=== PATIENT | female | born 1950 | race Caucasian/White ===

== ENCOUNTER → 2017-04-07 | Day surgery (SDC) | payer OTHER ==
[~2017-04-07] MED LIST: ACETAMINOPHEN 1000 MG/100 ML VIAL IV ONE; BACITRACIN IM FOR SOLN 50,000 UNIT VIAL ONE; BUPIVACAINE/EPINEPHRINE 0.25% 50 ML VIAL ONE; GENTAMICIN SULFATE 80 MG/2 ML VIAL ONE; KETOROLAC TROMETHAMINE 30 MG/ML (IVP) VIAL IV PUSH ONE; LACTATED RINGER'S 1,000 ML BAG IV ONE; LACTATED RINGER'S 1000 ML INJ 1,000 ML ONE; LEVO.1 PO; LIDOCAINE 1%/EPINEPHrine 1:100,000 SOLN 20 ML VIAL ONE; LIDOCAINE HCL 1% PF 30 ML VIAL ONE; MEPERIDINE HCL 50 MG/ML VIAL ONE; MIDAZOLAM HCL 2 MG/2 ML VIAL ONE; MORPHINE SULFATE 4 MG/ML INJ ONE; ONDANSETRON HCL 4 MG/2 ML VIAL IV PUSH ONE; PROPOFOL 200 MG/20 ML AMP IV ONE; SODIUM CHLORIDE 0.9% 20 ML VIAL ONE; ceFAZolin INJ 1,000 MG VIAL ONE
--- NOTE | 2017-04-07 17:26 | TN ---
cc: ZE ROSS M.D. DATE OF SURGERY: 04/07/2017 PREOPERATIVE DIAGNOSIS Wishes of the exchange implants and correction of ptosis with correction of lipodystrophy. PROCEDURES: Removal and replacement of implants with a slim lipoma the torso and thighs. SURGEON Ze Ross. ANESTHESIA LMA general ESTIMATED BLOOD LOSS: Minimal. COMPLICATIONS: None. DRAINS: None. PROCEDURE She was properly consented, marked properly anesthetized the skin sterilized with Betadine solution and sterile draping applied. Local anesthetic was injected in the breast area, total of 60 cc of 1% lidocaine with epinephrine, next 0.12% Marcaine at 2:1 ratio 30 cc per breast. Through previous inframammary incision inferior vertical incision the pocket was encountered the implant was removed the pocket was irrigated, lateral capsulorrhaphies were done utilizing multiple layers of 2-0 silk suture in the lateral and inferior wall. Then the implant was applied. The implants placed were the inspire [facility]'s 330 cc. The serial number of the right breast implant device [id number] and to the left [id number]. After that was placed the wounds were closed utilizing multiple layers of 2-0 Monocryl suture and the patient was sat up the tailor tack technique was utilized in order to establish the excess of the envelope of the breast skin, utilizing surgical miki. That excess skin was marked, the miki were removed and were the de-epithelialized and the NAC was set at 42 mm areolar diameter and about 22 cm from sternal notch. The closure was done as follows, The inferior vertical horizontal incision was done utilizing 2-0 Monocryl suture and the NAC was set with a pinwheel utilizing a 2-0 PTFE suture reinforced with 2-0 quill and dressed with Dermabond. Attention was directed to the other side where the exactly the same manner. We proceeded and performed the proper procedure on the contralateral breast. Good viability of both breast was noted at the end of the case. Attention followup to the torso where a total tumescent of 2400 in was properly infiltrated out of those 1200 was fat with a difference 1200 cc. The energy utilized was 50,000 joules, of those 10,000 was anterior, right 20,000 to abdomen 20,000 Posterior abdomen and 1000 each thigh and knee. After the energy was delivered I proceeded to perform the removal with Micro A cannula and a 2.5 mm cannula as well. With this I performed the closure of this and every one of the puncture wounds utilizing 5-0 chromic suture and Steri-Strips was applied and finally I proceeded to perform the application of the girdle overall the patient tolerated the procedure well. She was awakened and extubated in the operating room transferred back to postanesthesia care unit in stable condition. No complications appreciated. The patient tolerated the procedure fairly well. MD KWESI Robertson/luis enrique /2:39 PM /3:52 PM MTDDelfin
== END | disposition home or self-care (01) ==
LOC: ESDC 08:50
PROVIDERS: ATTEND Plastic Surgery
DX: Z41.1 Encounter for cosmetic surgery (principal)
CPT/HCPCS: 00300; 00400; 00402; 15877; 15879; 19325; 19328; C1789; J0131; J0690; J1580; J1885; J2175; J2250; J2270; J2405; J3010; J7120

== ENCOUNTER 2018-01-04 15:01 | Emergency (ER) | payer MEDICARE, OTHER ==
[~2018-01-04] VITALS: Ht 157.5 cm; Wt 69.0 kg
[~2018-01-04 15:01] MED LIST changes: -ACETAMINOPHEN 1000 MG/100 ML VIAL IV ONE; -BACITRACIN IM FOR SOLN 50,000 UNIT VIAL ONE; -BUPIVACAINE/EPINEPHRINE 0.25% 50 ML VIAL ONE; -GENTAMICIN SULFATE 80 MG/2 ML VIAL ONE; -KETOROLAC TROMETHAMINE 30 MG/ML (IVP) VIAL IV PUSH ONE; -LACTATED RINGER'S 1,000 ML BAG IV ONE; -LACTATED RINGER'S 1000 ML INJ 1,000 ML ONE; -LEVO.1 PO; +LEVO.125 PO; -LIDOCAINE 1%/EPINEPHrine 1:100,000 SOLN 20 ML VIAL ONE; -LIDOCAINE HCL 1% PF 30 ML VIAL ONE; -MEPERIDINE HCL 50 MG/ML VIAL ONE; +METF500T PO; -MIDAZOLAM HCL 2 MG/2 ML VIAL ONE; -MORPHINE SULFATE 4 MG/ML INJ ONE; -ONDANSETRON HCL 4 MG/2 ML VIAL IV PUSH ONE; -PROPOFOL 200 MG/20 ML AMP IV ONE; -SODIUM CHLORIDE 0.9% 20 ML VIAL ONE; -ceFAZolin INJ 1,000 MG VIAL ONE
[2018-01-04 15:03] VITALS: BP 208/89; PULSE 85; RESP 16; TEMP 98.4; O2SAT 97
--- NOTE | 2018-01-04 16:11 | RADRPT ---
EXAM DATE/TIME: 01/04/2018 15:56 [place] COMPARISON: No previous studies available for comparison. INDICATIONS : Left lower chest pain. Patient was hit in the left chest with tree trimmers today. MEDICAL HISTORY : None. SURGICAL HISTORY : None. ENCOUNTER: Initial ACUITY: 1 day PAIN SCORE: 8/10 LOCATION: Left lower chest FINDINGS: A single view of the chest demonstrates the lungs to be symmetrically aerated without evidence of mas s, infiltrate or effusion. The cardiomediastinal contours are unremarkable. Osseous structures are grossly intact. CONCLUSION: No acute cardiopulmonary process. Limited visualization of the osseous structures due to body sharp bitus, however. Mat Copeland MD on January 04, 2018 at 16:06 Board Certified Radiologist. This report was verified electronically.
[2018-01-04 16:20] VITALS: BP 166/79; RESP 16; O2SAT 98
--- NOTE | 2018-01-04 16:28 | PD ---
HPI Chief Complaint: Injury Time Seen by Provider: 16:18 Travel History International Travel<30 days: No Contact w/Intl Traveler<30days: No Traveled to known affect area: No History of Present Illness HPI 67-year-old female presents to the emergency Department with complaint of left lower anterior rib cage pain after using hedge clippers and the handle came back and hit her in left lower anterior ribs today. Denies open wounds. Reports "a little" shortness of breath depending upon how she moves. Pain is worse with deep breathing and movement. Has not taken any medications or trying treatments to alleviate her symptoms. Rates pain 8/10. Describes a sharp sensation. No known relieving factors. Primary care provider is Dr. Yanes. History of hypothyroidism. Allergies to seafood. Has no other medical complaints. No other modifying factors or associated signs and symptoms. PFSH Past Medical History Cardiovascular Problems: No GERD: No Hepatitis: No Hiatal Hernia: No Musculoskeletal: No Neurologic: No Respiratory: No Ulcer: No Past Surgical History Abdominal Surgery: Yes (HYSTERECTOMY) Appendectomy: No Cardiac Surgery: No Cholecystectomy: No Ear Surgery: No Endocrine Surgery: No Eye Surgery: No Genitourinary Surgery: No Gynecologic Surgery: No Oral Surgery: No Thoracic Surgery: No Social History Tobacco Use: No Allergies-Medications (Allergen,Severity, Reaction): Coded Allergies: Fish Containing Products (Verified Allergy, Severe, RESP DISTRESS; HIVES, 01/04/18) Reported Meds & Prescriptions Reported Meds & Active Scripts Active Robaxin (Methocarbamol) 500 Mg Tab 500 Mg PO QID PRN Tramadol (Tramadol HCl) 50 Mg Tab 50 Mg PO Q4H PRN Reported Metformin (Metformin HCl) Unknown Strength Tab Unknown Dose PO BIDPC With meals Synthroid (Levothyroxine Sodium) 125 Mcg Tab 125 Mcg PO DAILY Review of Systems Except as stated in HPI: all other systems reviewed are Neg Physical Exam Narrative GENERAL: Well-nourished, well-developed female patient, in no acute distress SKIN: Warm and dry. HEAD: Atraumatic. Normocephalic. EYES: Pupils equal and round. No scleral icterus. No injection or drainage. ENT: Mucosa pink and moist. NECK: Trachea midline. CHEST: Left lower anterior rib cage just below the left breast with reproducible chest wall tenderness; no crepitance or deformity; area without bruising, erythema, edema. No retractions or use of accessory muscles. CARDIOVASCULAR: Regular rate and rhythm. No murmur appreciated. RESPIRATORY: No accessory muscle use. Clear to auscultation. Breath sounds equal bilaterally. No retractions or tachypnea. GASTROINTESTINAL: Abdomen soft, non-tender, nondistended. Hepatic and splenic margins not palpable. Bowel sounds are active 4 quadrants. MUSCULOSKELETAL: No obvious deformities. No clubbing. No cyanosis. No edema. NEUROLOGICAL: Awake and alert. Oriented 3. No obvious cranial nerve deficits. Motor grossly within normal limits. Normal speech. Moves all extremities. 5/5 strength to all extremities. PSYCHIATRIC: Appropriate mood and affect; insight and judgment normal. Data Data Last Documented VS Vital Signs Date Time Temp Pulse Resp B/P (MAP) Pulse Ox O2 Delivery O2 Flow Rate FiO2 01/04/18 16:50 01/04/18 16:20 16 98 Room Air 01/04/18 15:47 71 01/04/18 15:03 98.4 Orders Orders Chest, Single Ap (01/04/18 15:51) Resp Incentive Spirometry (01/04/18 ) Ketorolac Inj (Toradol Inj) (01/04/18 16:30) Ed Discharge Order (01/04/18 16:29) MDM Medical Decision Making Medical Screen Exam Complete: Yes Emergency Medical Condition: Yes Medical Record Reviewed: Yes Differential Diagnosis Rib contusion, rib fracture, pneumothorax Narrative Course 67-year-old female with injury of the ribs of the left lower anterior rib cage, just below the breast. Patient is in no acute distress. No retractions or tachypnea. No crepitance to the area. Lungs are clear and equal throughout. Chest x-ray ordered. 1630: Chest x-ray concludes: Chest X-Ray 01/04/18 1551 Signed Impressions: Service Date/Time: Thursday, January 04, 2018 15:56 - CONCLUSION: No acute cardiopulmonary process. Limited visualization of the osseous structures due to body habitus, however. Mat Copeland MD Patient provided a copy of the x-ray report. Incentive spirometer, Toradol ordered. Tramadol and Robaxin prescribed for home. Instructed patient to perform deep breathing exercises every 2 hours while awake. Instructed patient to follow up with primary care provider. Patient verbalizes understanding and agreement with treatment plan. Patient is medically cleared and stable for discharge. Discussed reasons to return to the emergency department. Patient agrees with treatment plan. The patients vital signs are stable and the patient is stable for outpatient follow-up and treatment. Patient discharged home, stable and in no acute distress. Diagnosis Primary Impression: Contusion of rib on left side Qualified Codes: S20.212A - Contusion of left front wall of thorax, initial encounter Referrals: Primary Care Physician Patient Instructions: General Instructions, How to Use an Incentive Spirometer (ED), Rib Contusion (ED) Additional Instructions: Ibuprofen or Tylenol as directed and as needed to reduce pain Robaxin as prescribed and as needed to reduce muscle spasms Heating pad and/or ice to affected area to reduce pain Avoid aggravating activities; increase activity as tolerated Gentle stretching to the affected muscle may be helpful Follow-up with a primary care provider Return to the emergency department immediately with worsening of symptoms Med/Other Pt SpecificInfo: Prescription(s) given Scripts Methocarbamol (Robaxin) 500 Mg Tab 500 MG PO QID Y for MUSCLE SPASM, #30 TAB 0 Refills Prov: Suzanne Mehta 01/04/18 Tramadol (Tramadol) 50 Mg Tab 50 MG PO Q4H Y for PAIN, #12 TAB 0 Refills Prov: Suzanne Mehta 01/04/18 Disposition: 01 DISCHARGE HOME Condition: Stable Suzanne Mehta Jan 04, 2018 16:28
[2018-01-04] MEDS ORDERED: KETOROLAC TROMETHAMINE 60 MG/2 ML (IM) VIAL IM ONE (16:30)
[2018-01-04] MEDS ORDERED: ROBA500T PO (16:33)
[2018-01-04] MEDS ORDERED: TRAM50TA PO (16:33)
== END 2018-01-04 16:57 | disposition home or self-care (01) ==
LOC: NEPD 15:01
DX: S20.212A Contusion of left front wall of thorax, initial encounter (principal); E03.9 Hypothyroidism, unspecified; W22.8XXA Striking against or struck by other objects, initial encounter; Z79.899 Other long term (current) drug therapy
CPT/HCPCS: 71045; 96372; 99283; J1885